=== PATIENT | female | born 1935 | race Caucasian/White ===

== ENCOUNTER 2022-03-09 16:16 | Emergency (ER) | payer MEDICARE, SELFPAY ==
--- NOTE | ~2022-03-09 | CT_ITS ---
EXAMINATION: CT BRAIN AND CT CERVICAL SPINE WITHOUT CONTRAST. CLINICAL INFORMATION: Fall, head trauma. COMPARISON: CT cervical spine 06/24/2017. TECHNIQUE: 5 mm thin axial and reformatted 2 mm thin sagittal and coronal images of brain were obtained without contrast. Axial 3 mm thin and reformatted 2 mm thin sagittal and coronal images of cervical spine were obtained without contrast. DLP 1072. FINDINGS: Brain: There is no acute intra-axial, extra-axial bleed, masses or midline shift. There is no acute infarction evolution. The lateral ventricles are symmetrical in size but enlarged. There is diffuse periventricular hypodensity seen in both cerebral hemispheres without mass effect. There is no edema. No acute infarction or lesion. Bone windows reveal no calvarial abnormality. There is right posterior scalp hematoma. Bilateral paranasal sinuses and mastoid air cells are well-aerated. Cervical spine: There is normal cervical lordosis. The vertebral heights and alignment is normal. There is loss of C5-C6 and C6-C7 disc heights with moderate ventral spondylosis. The craniovertebral junction is normal. There is moderate hypertrophic enthesophyte along anterior C1-C2 alignment. There is moderate bilateral left C2-C3, bilateral C3-C4, C4-C5 and right C5-C6 facet joint arthropathy. The prevertebral and paravertebral soft tissues are normal. CT/CT head/brain wo con IMPRESSION: No acute intracranial process seen. Right frontal scalp hematoma. No calvarial abnormality seen. No acute fracture, dislocation or subluxation seen. There is bilateral facet arthropathy as described above.
--- NOTE | ~2022-03-09 | XR_ITS ---
EXAMINATION: BILATERAL SHOULDER AND CHEST X-RAY., CLINICAL INFORMATION: Fall, shoulder pain. COMPARISON: None TECHNIQUE: Chest one view. 3 views each shoulder. FINDINGS: Left shoulder: There is an acute fracture lateral clavicle with mild superior dislocation. AC joint is maintained normal. There is an moderate callus formation and thickening of the cortex left proximal humerus likely old injury. No glenohumeral dislocation. There is old healed left sixth posterior rib fracture. Right shoulder: There is no visible acute fracture, dislocation or subluxation seen. The AC joint and the glenohumeral joint space is maintained normal. A displaced right scapular fracture suspected on the Y view. Chest x-ray: The lungs are well-expanded and clear of acute process. The heart size and pulmonary vascularity is normal. No gross bony abnormality seen. XR/XR shoulder RT min 2V IMPRESSION: Minimally displaced lateral clavicular fracture. There is no AC joint separation seen. There is probably an old healed left proximal humeral fracture with abundant callus formation. There is no acute fracture or dislocation right shoulder joint however there is minimally displaced right scapular fracture suspected. Unremarkable chest exam. There is an old healed left posterior sixth and fracture.
--- NOTE | ~2022-03-09 | XR_ITS ---
EXAMINATION: BILATERAL SHOULDER AND CHEST X-RAY., CLINICAL INFORMATION: Fall, shoulder pain. COMPARISON: None TECHNIQUE: Chest one view. 3 views each shoulder. FINDINGS: Left shoulder: There is an acute fracture lateral clavicle with mild superior dislocation. AC joint is maintained normal. There is an moderate callus formation and thickening of the cortex left proximal humerus likely old injury. No glenohumeral dislocation. There is old healed left sixth posterior rib fracture. Right shoulder: There is no visible acute fracture, dislocation or subluxation seen. The AC joint and the glenohumeral joint space is maintained normal. A displaced right scapular fracture suspected on the Y view. Chest x-ray: The lungs are well-expanded and clear of acute process. The heart size and pulmonary vascularity is normal. No gross bony abnormality seen. XR/XR shoulder LT min 2V IMPRESSION: Minimally displaced lateral clavicular fracture. There is no AC joint separation seen. There is probably an old healed left proximal humeral fracture with abundant callus formation. There is no acute fracture or dislocation right shoulder joint however there is minimally displaced right scapular fracture suspected. Unremarkable chest exam. There is an old healed left posterior sixth and fracture.
--- NOTE | ~2022-03-09 | XR_ITS ---
EXAMINATION: BILATERAL SHOULDER AND CHEST X-RAY., CLINICAL INFORMATION: Fall, shoulder pain. COMPARISON: None TECHNIQUE: Chest one view. 3 views each shoulder. FINDINGS: Left shoulder: There is an acute fracture lateral clavicle with mild superior dislocation. AC joint is maintained normal. There is an moderate callus formation and thickening of the cortex left proximal humerus likely old injury. No glenohumeral dislocation. There is old healed left sixth posterior rib fracture. Right shoulder: There is no visible acute fracture, dislocation or subluxation seen. The AC joint and the glenohumeral joint space is maintained normal. A displaced right scapular fracture suspected on the Y view. Chest x-ray: The lungs are well-expanded and clear of acute process. The heart size and pulmonary vascularity is normal. No gross bony abnormality seen. XR/XR chest 1V IMPRESSION: Minimally displaced lateral clavicular fracture. There is no AC joint separation seen. There is probably an old healed left proximal humeral fracture with abundant callus formation. There is no acute fracture or dislocation right shoulder joint however there is minimally displaced right scapular fracture suspected. Unremarkable chest exam. There is an old healed left posterior sixth and fracture.
--- NOTE | ~2022-03-09 | CT_ITS ---
EXAMINATION: CT BRAIN AND CT CERVICAL SPINE WITHOUT CONTRAST. CLINICAL INFORMATION: Fall, head trauma. COMPARISON: CT cervical spine 06/24/2017. TECHNIQUE: 5 mm thin axial and reformatted 2 mm thin sagittal and coronal images of brain were obtained without contrast. Axial 3 mm thin and reformatted 2 mm thin sagittal and coronal images of cervical spine were obtained without contrast. DLP 1072. FINDINGS: Brain: There is no acute intra-axial, extra-axial bleed, masses or midline shift. There is no acute infarction evolution. The lateral ventricles are symmetrical in size but enlarged. There is diffuse periventricular hypodensity seen in both cerebral hemispheres without mass effect. There is no edema. No acute infarction or lesion. Bone windows reveal no calvarial abnormality. There is right posterior scalp hematoma. Bilateral paranasal sinuses and mastoid air cells are well-aerated. Cervical spine: There is normal cervical lordosis. The vertebral heights and alignment is normal. There is loss of C5-C6 and C6-C7 disc heights with moderate ventral spondylosis. The craniovertebral junction is normal. There is moderate hypertrophic enthesophyte along anterior C1-C2 alignment. There is moderate bilateral left C2-C3, bilateral C3-C4, C4-C5 and right C5-C6 facet joint arthropathy. The prevertebral and paravertebral soft tissues are normal. CT/CT cervical spine wo con IMPRESSION: No acute intracranial process seen. Right frontal scalp hematoma. No calvarial abnormality seen. No acute fracture, dislocation or subluxation seen. There is bilateral facet arthropathy as described above.
[2022-03-09 16:37] VITALS: BP 157/78; PULSE 77; O2SAT 96
--- NOTE | 2022-03-09 16:37 | ED_ITS ---
HPI - Fall General Chief Complaint: Fall Stated Complaint: faLL Time Seen by Provider: 03/09/22 17:53 Source: patient and EMS Mode of arrival: EMS Limitations: altered mental status (Dementia per baseline) History of Present Illness HPI Narrative: 87-year-old female presents via EMS for evaluation for injury sustained from a fall with head strike at a prison facility. Patient has dementia, oriented to self, but unable to answer questions reliably. MD complaint: fall Onset (ago): hour(s) (Within the hour of arrival) Fall from: wheelchair Fall witnessed: no Place fall occurred: custod[facility] Loss of consciousness: unsure Prolonged down time: no Symptoms prior to fall: none Context: other (Fell forward) Location of injury: head Location of injury - extremities: right: shoulder Severity: moderate Severity scale (1-10): 6 Quality: aching Related Data Previous Rx's Medication Instructions Recorded oxycodone 5 mg tablet 5 mg PO Q6H PRN pain 3 days #12 03/09/22 tabs Allergies Allergy/AdvReac Type Severity Reaction Status Date / Time ciprofloxacin [From Cipro] Allergy Unknown UNKNOWN Unverified 04/22/20 15:29 omeprazole [From Prilosec] Allergy Unknown UNKNOWN Unverified 04/22/20 15:29 cipro Allergy Unknown Uncoded 10/09/17 00:00 From Macrobid Allergy Unknown UNKNOWN Uncoded 04/22/20 15:29 prilosec Allergy Unknown Uncoded 10/09/17 00:00 Review of Systems Review of Systems: Constitutional: No Fever, No Chills ENT/Mouth: No Ear Pain, No Hoarseness, No sore throat Eyes: No Eye Pain, No Swelling, No Redness, No Foreign Body Cardiovascular: No Chest Pain, No SOB Respiratory: No Cough, No Dyspnea Gastrointestinal: No Nausea, No Vomiting, No Diarrhea, No abdominal Pain Musculoskeletal: positive right and left shoulder pain, No Myalgias, No Joint Swelling Skin: No Skin lacerations, No rash Yes Unobtainable due to mental status (Dementia per baseline) [facility] Past Medical History Attestation statement: The following information was validated with the patient. Source: old records reviewed Social History Social History Advance Directives: Yes Advance Directives Information Provided: Yes Advance Directives on File: No Physical Exam Vital Signs: Vital Signs: Last Vital Signs Temp 97.7 F 03/09/22 16:47 Pulse 72 03/09/22 19:36 Resp 20 03/09/22 19:36 BP 166/75 H 03/09/22 19:36 Pulse Ox 94 03/09/22 19:36 O2 Del Method 03/09/22 19:36 BMI result Body Mass Index 34.4 Appearance: Alert. Oriented to self. No acute distress. Eyes: Pupils equal, round and reactive to light. ENT: Pharynx normal. Neck: Normal inspection. Neck supple. CVS: Normal heart rate and rhythm. Pulses normal. Respiratory: No respiratory distress. Breath sounds normal. Abdomen: Soft and nontender. Skin: Skin warm and dry. Normal skin color. Normal skin turgor. Extremities: Tenderness to left clavicle, and right scapula. Full range of motion to all extremities. Neuro: No motor deficit. No sensory deficit. Cranial nerves 2-12 intact. Course Course Course Narrative: 87-year-old female presents via EMS for evaluation for injury sustained from a fall. Patient is able to make her needs known however is demented per baseline. 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 Patient presents from a prison facility for a fall out of wheelchair with head strike. No reports of loss of consciousness however this fall was unwitnessed. Will order labs, CT scan of head and neck. 18:30 CT scan is clear. C-collar removed. 19:55 chest x-ray is negative, shows old fracture of the posterior 6th rib, right shoulder indicates a displaced right scapular fracture on the Y-view, left shoulder indicates an acute fracture of the left clavicle with mid superior dislocation. 20:05 Healthcare proxy is at bedside, discussion with proxy regarding injuries. Plan of care is to discharge home. MDM - Fall Differential Diagnosis Differential diagnosis: Likely fracture, compression fracture and concussion without loss of consciousness Medical Records Attestation: I reviewed the patient's medical records. Lab Data Attestation: I reviewed the patient's lab results. Result diagrams: 03/09/22 17:18 03/09/22 17:18 Labs: Lab Results 03/09/22 03/09/22 03/09/22 Range/Units 17:18 17:18 17:18 WBC 9.9 (4.8-10.8) X10*3/uL RBC 4.47 (4.20-5.50) X10*6/uL Hgb 13.6 (12.0-16.0) g/dl Hct 40.4 (37.0-47.0) % MCV 90.4 (80.0-98.0) fL MCH 30.4 (27.0-33.0) pg MCHC 33.7 (31.0-35.0) g/dl RDW 12.9 (11.0-16.0) % Plt Count 247 (160-400) X10*3/uL MPV 9.2 L (9.4-12.3) fL Immature Gran % (Auto) 0.9 H (0.0-0.4) % Neut % (Auto) 63.5 (45-73) % Lymph % (Auto) 27.5 (20-40) % [place] % (Auto) 4.9 (2-11) % Eos % (Auto) 2.7 (0-4) % Baso % (Auto) 0.5 (0-2) % Lymph # (Auto) 2.7 (1.2-4.9) X10*3/uL [place] # (Auto) 0.5 (0.1-1.2) X10*3/uL Eos # (Auto) 0.3 (0.0-0.4) X10*3/uL Baso # (Auto) 0.1 (0.0-0.2) X10*3/uL Abs Immat Gran (auto) 0.09 H (0.00-0.03) X10*3/uL Absolute Neuts (auto) 6.3 (2.0-8.3) x10*3/uL Absolute Nucleated RBC 0.000 (0.0-0.012) X10*3/uL Nucleated RBC % (auto) 0.0 (0.0-0.2) /100WBC PT 10.7 (10.0-13.1) SEC INR 0.9 (0.9-1.1) APTT 37.3 H (26.0-36.4) SEC Sodium 138 (135-145) mmol/L Potassium 4.1 (3.3-5.1) mmol/L Chloride 101 (96-108) mmol/L Carbon Dioxide 27 (22-29) mmol/L Anion Gap 14 (12-20) BUN 13 (9-16) mg/dL Creatinine 0.79 (0.5-1.4) mg/dL Estim Creat Clear Calc 47.9 Estimated GFR > 60 Random Glucose 108 (60-115) mg/dL Calcium 9.7 (8.4-10.2) mg/dL Troponin I High Sens (<3.5-17.0) ng/L 03/09/22 Range/Units 17:18 WBC (4.8-10.8) X10*3/uL RBC (4.20-5.50) X10*6/uL Hgb (12.0-16.0) g/dl Hct (37.0-47.0) % MCV (80.0-98.0) fL MCH (27.0-33.0) pg MCHC (31.0-35.0) g/dl RDW (11.0-16.0) % Plt Count (160-400) X10*3/uL MPV (9.4-12.3) fL Immature Gran % (Auto) (0.0-0.4) % Neut % (Auto) (45-73) % Lymph % (Auto) (20-40) % [place] % (Auto) (2-11) % Eos % (Auto) (0-4) % Baso % (Auto) (0-2) % Lymph # (Auto) (1.2-4.9) X10*3/uL [place] # (Auto) (0.1-1.2) X10*3/uL Eos # (Auto) (0.0-0.4) X10*3/uL Baso # (Auto) (0.0-0.2) X10*3/uL Abs Immat Gran (auto) (0.00-0.03) X10*3/uL Absolute Neuts (auto) (2.0-8.3) x10*3/uL Absolute Nucleated RBC (0.0-0.012) X10*3/uL Nucleated RBC % (auto) (0.0-0.2) /100WBC PT (10.0-13.1) SEC INR (0.9-1.1) APTT (26.0-36.4) SEC Sodium (135-145) mmol/L Potassium (3.3-5.1) mmol/L Chloride (96-108) mmol/L Carbon Dioxide (22-29) mmol/L Anion Gap (12-20) BUN (9-16) mg/dL Creatinine (0.5-1.4) mg/dL Estim Creat Clear Calc Estimated GFR Random Glucose (60-115) mg/dL Calcium (8.4-10.2) mg/dL Troponin I High Sens 5.2 (<3.5-17.0) ng/L Imaging Data CT head cervical spine: Attestation: I personally reviewed and interpreted this imaging study as follows: Radiologist's impression: EXAMINATION: CT BRAIN AND CT CERVICAL SPINE WITHOUT CONTRAST. CLINICAL INFORMATION: Fall, head trauma.? COMPARISON: CT cervical spine 06/24/2017.? TECHNIQUE: 5 mm thin axial and reformatted 2 mm thin sagittal and coronal images of brain were obtained without contrast. Axial 3 mm thin and reformatted 2 mm thin sagittal and coronal images of cervical spine were obtained without contrast. DLP 1072.? FINDINGS: Brain: There is no acute intra-axial, extra-axial bleed, masses or midline shift. There is no acute infarction evolution. The lateral ventricles are symmetrical in size but enlarged. There is diffuse periventricular hypodensity seen in both cerebral hemispheres without mass effect. There is no edema. No acute infarction or lesion. Bone windows reveal no calvarial abnormality. There is right posterior scalp hematoma. Bilateral paranasal sinuses and mastoid air cells are well-aerated. Cervical spine: There is normal cervical lordosis. The vertebral heights? and alignment is normal. There is loss of C5-C6 and C6-C7 disc heights with moderate ventral spondylosis. The craniovertebral junction is normal. There is moderate hypertrophic enthesophyte along anterior C1-C2 alignment. There is moderate bilateral left C2-C3, bilateral C3-C4, C4-C5 and right C5-C6 facet joint arthropathy. The prevertebral and paravertebral soft tissues are normal. CT/CT cervical spine wo con IMPRESSION: No acute intracranial process seen. ? Right frontal scalp hematoma. No calvarial abnormality seen. ? No acute fracture, dislocation or subluxation seen. There is bilateral facet arthropathy as described above. Bilateral shoulder and chest x-ray: Attestation: I personally reviewed and interpreted this imaging study as follows: Radiologist's impression: EXAMINATION: BILATERAL SHOULDER AND CHEST X-RAY., CLINICAL INFORMATION: Fall, shoulder pain.? COMPARISON: None? TECHNIQUE: Chest one view. 3 views each shoulder.? FINDINGS: Left shoulder: There is an acute fracture lateral clavicle with mild superior dislocation. AC joint is maintained normal. There is an moderate callus formation and thickening of the cortex left proximal humerus likely old injury. No glenohumeral dislocation. There is old healed left sixth posterior rib fracture. Right shoulder: There is no visible acute fracture, dislocation or subluxation seen. The AC joint and the glenohumeral joint space is maintained normal. A displaced right scapular fracture suspected on the Y view. Chest x-ray: The lungs are well-expanded and clear of acute process. The heart size and pulmonary vascularity is normal. No gross bony abnormality seen. XR/XR shoulder RT min 2V IMPRESSION: Minimally displaced lateral clavicular fracture. There is no AC joint separation seen. There is probably an old healed left proximal humeral fracture with abundant callus formation. ? There is no acute fracture or dislocation right shoulder joint however there is minimally displaced right scapular fracture suspected. ? Unremarkable chest exam. There is an old healed left posterior sixth and fracture. ECG Data Attestation: I personally reviewed and interpreted this ECG as follows: ECG interpretation date: 03/09/22 ECG interpretation time: 17:42 Prior ECG tracings: available for review Interpretation: Vent. rate 73 BPM KS interval 168 ms QRS duration 142 ms QT/QTc 430/473 ms P-R-T axes 52 -16 143 Normal sinus rhythm Left bundle branch block Abnormal ECG When compared with ECG of 21-DEC-2017 05:16, No significant change was found Discharge Plan Discharge Clinical Impression: Closed fracture of left clavicle, Closed fracture of right scapula, Concussion without loss of consciousness Patient Disposition: er [facility] Transfer Details: Layo Dowell Instructions: Clavicle Fracture (ED), Scapular Fracture (ED), Concussion (ED), Post Concussion Syndrome (ED) Additional Instructions: You were evaluated for injuries sustained from a fall. CT scan of head and neck are negative for acute findings. You may have symptoms consistent with a concussion. X-rays of the shoulders indicate a left clavicular fracture and a right scapula fracture. Please use sling for the left shoulder. Give oxycodone 5 mg every 6 hours as needed for pain management. I have prescribed 3 days worth of medications. Concerning her injuries are significant she may need further pharmacotherapy. She also may benefit from a physical therapy assessment. Please give MiraLax daily while taking oxycodone. Detailed description of injuries and care provided given to patient's healthcare proxy. Thank you for choosing this emergency department for evaluation. Please follow-up with primary care physician as needed. Return to the emergency department for any new, concerning, or worsening symptoms. Prescriptions: New oxycodone 5 mg tablet 5 mg PO Q6H PRN (Reason: pain) 3 Days Qty: 12 0RF Rx Instructions: Partial Fill upon patient request. Referrals: Garret hTomas MD [Physician] - 2 weeks (Left clavicular fracture, right scapular fracture)
--- NOTE | 2022-03-09 16:42 | ECG_ITS ---
Test Reason : FALL Blood Pressure : / mmHG Vent. Rate : 073 BPM Atrial Rate : 073 BPM P-R Int : 168 ms QRS Dur : 142 ms QT Int : 430 ms P-R-T Axes : 052 -16 143 degrees QTc Int : 473 ms Normal sinus rhythm Left bundle branch block Abnormal ECG When compared with ECG of 21-DEC-2017 05:16, No significant change was found Referred By: Laura Garcia Electronically Signed By:EDDIE GUAN MD
[2022-03-09 16:47] VITALS: BP 186/81; PULSE 70; TEMP 36.5; O2SAT 97; BMI 34.4
[2022-03-09 17:27] LABS: MANUAL DIFF FLAG NO
[2022-03-09 17:32] LABS: Basophils Absolute Auto 0.1 X10*3/uL (0.0-0.2); Basophils Percent Auto 0.5 % (0-2); Eosinophils Absolute Auto 0.3 X10*3/uL (0.0-0.4); Eosinophils Percent Auto 2.7 % (0-4); Hematocrit 40.4 % (37.0-47.0); Hemoglobin 13.6 g/dl (12.0-16.0); Imm Gran Abs Auto 0.09 X10*3/uL (0.00-0.03); Imm Gran Pct Auto 0.9 % (0.0-0.4); Lymphocytes Absolute Auto 2.7 X10*3/uL (1.2-4.9); Lymphocytes Percent Auto 27.5 % (20-40); Mean Corpuscular HGB Conc 33.7 g/dl (31.0-35.0); Mean Corpuscular Hemoglobin 30.4 pg (27.0-33.0); Mean Corpuscular Volume 90.4 fL (80.0-98.0); Mean Platelet Volume 9.2 fL (9.4-12.3); Monocytes Absolute Auto 0.5 X10*3/uL (0.1-1.2); Monocytes Percent Auto 4.9 % (2-11); Neutrophils Absolute Auto 6.3 x10*3/uL (2.0-8.3); Neutrophils Percent Auto 63.5 % (45-73); Platelet Count 247 X10*3/uL (160-400); Red Blood Count 4.47 X10*6/uL (4.20-5.50); Red Cell Distribution Width 12.9 % (11.0-16.0); White Blood Count 9.9 X10*3/uL (4.8-10.8)
[2022-03-09 17:38] LABS: INTERNATIONAL NORM RATIO 0.9 (0.9-1.1); Prothrombin Time 10.7 SEC (10.0-13.1)
[2022-03-09 17:40] LABS: Partial Thromboplastin Time 37.3 SEC (26.0-36.4)
[2022-03-09 17:54] LABS: Anion Gap 14 (12-20); Blood Urea Nitrogen 13 mg/dL (9-16); Calcium 9.7 mg/dL (8.4-10.2); Carbon Dioxide 27 mmol/L (22-29); Chloride 101 mmol/L (96-108); Creatinine Clr Calc Pharmacy 47.9; Estimated Glomerular Filt Rate > 60; Glucose Random 108 mg/dL (60-115); Potassium 4.1 mmol/L (3.3-5.1); Sodium 138 mmol/L (135-145)
[2022-03-09 18:00] LABS: Troponin-I High Sensitivity 5.2 ng/L (<3.5-17.0)
[2022-03-09 19:36] VITALS: BP 166/75; PULSE 72; RESP 20; O2SAT 94
[2022-03-09] MEDS: Acetaminophen 325 MG TABLET 650 MG PO (19:36)
--- NOTE | 2022-03-09 19:43 | PC.NURSE ---
report received from Radha CORREA. assumed care of pt at 1900. pt medicated with tylenol per mar for 8/10 L shoulder pain . warm blanket given. call funez within reach.
[2022-03-09] MEDS: oxyCODONE HCl Immed Release 5 MG TABLET PO (20:44)
--- NOTE | 2022-03-09 20:56 | PC.NURSE ---
This [facility]/PCT [facility] at [facility] EMS ETA about an hour Rn aware .
--- NOTE | 2022-03-09 22:26 | PC.NURSE ---
While waiting for EMS transport, pt moved into the hallway due to an influx of several ambulances requiring cardiac monitors. Daughter at bedside expressing frustration over being in the robin and EMS not having arrived for transport. [facility] calling [facility] for ETA, per [facility] ETA 1 hour.
--- NOTE | 2022-03-09 22:28 | PC.NURSE ---
Called [facility] at 2228 for a ETA on transport. Spoke to Ford he stated within an hour. Rn and gynecologist aware
--- NOTE | 2022-03-09 22:48 | PC.NURSE ---
Daughter insistent that she will be driving pt back to [facility] herself. This RN contacting [facility], speaking to [facility] to see if the pt would be accepted if she traveled back to the SNF by private car. Per Carlos, she contacted Steffany the nursing professor who stated that pt needed to return by ambulance as she has a hx is severe dementia and is a a high fall risk. Daughter notified that she is unable to transport her to the SNF. Daughter expressing frustration but is agreeable to waiting for EMS.
== END 2022-03-10 01:10 | disposition skilled nursing facility (03) ==
PROVIDERS: Nurse Practitioner Family; Emergency Provider Emergency Medicine
DX: S06.0X0A Concussion without loss of consciousness, initial encounter (principal); S42.032A Displaced fracture of lateral end of left clavicle, initial encounter for closed fracture; S42.101A Fracture of unspecified part of scapula, right shoulder, initial encounter for closed fracture; S00.83XA Contusion of other part of head, initial encounter; W05.0XXA Fall from non-moving wheelchair, initial encounter; Y93.89 Activity, other specified; Y92.129 Unspecified place in nursing home as the place of occurrence of the external cause; Y99.9 Unspecified external cause status
CPT/HCPCS: 36415; 70450; 71045; 72125; 73030; 80048; 84484; 85025; 85610; 85730; 93005; 99284